=== PATIENT | female | born 1950 ===

== ENCOUNTER 2018-04-25 09:52 | Outpatient (CLI) | payer OTHER | END 2018-04-25 09:54 | disposition home or self-care (01) | LOC: MAMO-SONO 09:52 | DX: Z12.31 Encounter for screening mammogram for malignant neoplasm of breast (principal); Z87.898 Personal history of other specified conditions; N63.10 Unspecified lump in the right breast, unspecified quadrant; N63.20 Unspecified lump in the left breast, unspecified quadrant; N60.01 Solitary cyst of right breast; N60.02 Solitary cyst of left breast ==

== ENCOUNTER 2019-05-07 08:27 | Outpatient (CLI) | payer OTHER | END 2019-05-07 08:33 | disposition home or self-care (01) | LOC: MAMO-SONO 08:27 | DX: Z12.31 Encounter for screening mammogram for malignant neoplasm of breast (principal); Z87.898 Personal history of other specified conditions; N64.89 Other specified disorders of breast; N63.10 Unspecified lump in the right breast, unspecified quadrant; N63.20 Unspecified lump in the left breast, unspecified quadrant ==

== ENCOUNTER 2020-05-11 10:00 | Outpatient (CLI) | payer OTHER | END 2020-05-11 10:12 | disposition HB | LOC: MAMO-SONO 10:00 | PROVIDERS: ATTEND Internal Medicine | DX: Z12.31 Encounter for screening mammogram for malignant neoplasm of breast (principal); Z87.898 Personal history of other specified conditions; N63.10 Unspecified lump in the right breast, unspecified quadrant; N63.20 Unspecified lump in the left breast, unspecified quadrant; E55.9 Vitamin D deficiency, unspecified; E53.8 Deficiency of other specified B group vitamins; E78.2 Mixed hyperlipidemia; M81.0 Age-related osteoporosis without current pathological fracture; I10 Essential (primary) hypertension ==

== ENCOUNTER 2020-06-10 08:14 | Outpatient (CLI) | payer OTHER | END 2020-06-10 08:25 | disposition home or self-care (01) | LOC: SONOGRAMA 08:14 → MAMO-SONO 09:45 | PROVIDERS: ATTEND Internal Medicine | DX: Q61.01 Congenital single renal cyst (principal); R73.09 Other abnormal glucose; N18.1 Chronic kidney disease, stage 1 ==

== ENCOUNTER 2021-11-06 13:57 | Outpatient (CLI) | payer OTHER | END 2021-11-06 14:11 | disposition home or self-care (01) | LOC: MAMO-SONO 13:57 | PROVIDERS: ATTEND Internal Medicine | DX: Z12.31 Encounter for screening mammogram for malignant neoplasm of breast (principal); N63.0 Unspecified lump in unspecified breast ==

== ENCOUNTER 2022-11-14 09:05 | Outpatient (CLI) | payer OTHER | END 2022-11-14 09:13 | disposition home or self-care (01) | LOC: MAMO-SONO 09:05 | PROVIDERS: ATTEND Internal Medicine | DX: Z12.31 Encounter for screening mammogram for malignant neoplasm of breast (principal); N64.4 Mastodynia; N60.11 Diffuse cystic mastopathy of right breast ==